=== PATIENT | female | born 1980 | race Caucasian/White ===

== ENCOUNTER 2017-02-17 23:26 | Emergency (ER) | payer MEDICARE, OTHER | END 2017-02-18 05:00 | disposition home or self-care (01) | LOC: ER 23:26 | DX: M79.1 Myalgia (principal); M79.601 Pain in right arm; I10 Essential (primary) hypertension; E11.9 Type 2 diabetes mellitus without complications; E03.9 Hypothyroidism, unspecified; Z88.6 Allergy status to analgesic agent; Z88.5 Allergy status to narcotic agent; Z79.899 Other long term (current) drug therapy; Z79.4 Long term (current) use of insulin | CPT/HCPCS: 96372; 99282-25; 99283 ==